=== PATIENT | male | born 1955 | race Caucasian/White ===

== ENCOUNTER 2020-10-24 09:49 | Outpatient (CLI) | payer MEDICARE ==
--- NOTE | 2020-10-24 10:28 | ULT ---
US Hepatic Doppler History: Hepatitis C Comparison: None. Findings: Real-time grayscale, color and spectral analysis of the liver was performed. Mildly increased hepatic echotexture without mass. No intrahepatic or extrahepatic biliary dilatation . Normal directional flow of the portal and hepatic veins. Liver measures 16.7 cm in length. Common bile duct measures 4 mm, normal. Normal waveforms of the hepatic artery. Gallbladder is normal. No pericholecystic inflammation. No cholelithiasis. Spleen is enlarged measuring 12.7 cm in length. Splenic artery and vein are patent. Impression: 1. Mild splenomegaly. 2. Mild coarsened hepatic echotexture suggesting hepatitis without mass. 3. Normal directional vascular flow.
== END 2020-10-24 09:50 | disposition home or self-care (01) ==
LOC: BICULT 09:49
PROVIDERS: ATTEND Internal Medicine Gastroenterology
DX: B18.2 Chronic viral hepatitis C (principal); K51.90 Ulcerative colitis, unspecified, without complications; R16.1 Splenomegaly, not elsewhere classified
CPT/HCPCS: 76705

== ENCOUNTER 2020-11-28 08:49 | Outpatient (CLI) | payer MEDICARE ==
--- NOTE | 2020-11-28 09:29 | RAD ---
LUMBAR SPINE SERIES 4 VIEWS: HISTORY: Low back pain with neurogenic claudication. FINDINGS: Vertebral bodies are normal in height. There is mild scoliotic change convex to the right. Pedicles are intact. There are degenerative facet changes without a significant degree of disk narrowing. F lexion and extension views do not show abnormal motion. IMPRESSION: Mild arthritic changes of the spine. POS: SYDNIE
== END 2020-11-28 08:50 | disposition home or self-care (01) ==
LOC: BICRAD 08:49
PROVIDERS: ATTEND Anesthesiology Pain Medicine
DX: S32.009K Unspecified fracture of unspecified lumbar vertebra, subsequent encounter for fracture with nonunion (principal); M48.062 Spinal stenosis, lumbar region with neurogenic claudication; M46.96 Unspecified inflammatory spondylopathy, lumbar region
CPT/HCPCS: 72110

== ENCOUNTER 2021-11-06 17:00 | Outpatient (CLI) | payer MEDICARE | END 2021-11-06 17:01 | disposition home or self-care (01) | LOC: SLEEPLAB 17:00 | PROVIDERS: ATTEND Registered Nurse | DX: G47.33 Obstructive sleep apnea (adult) (pediatric) (principal); G47.10 Hypersomnia, unspecified; R53.83 Other fatigue | CPT/HCPCS: 95806 ==

== ENCOUNTER 2021-12-03 19:30 | Outpatient (CLI) | payer MEDICARE | END 2021-12-03 19:31 | disposition home or self-care (01) | LOC: SLEEPLAB 19:30 | PROVIDERS: ATTEND Registered Nurse | DX: G47.33 Obstructive sleep apnea (adult) (pediatric) (principal); G47.10 Hypersomnia, unspecified; R53.83 Other fatigue | CPT/HCPCS: 95811 ==

== ENCOUNTER 2021-12-20 11:52 | Outpatient (CLI) | payer MEDICARE | END 2021-12-20 11:53 | disposition home or self-care (01) | LOC: MRI 11:52 | PROVIDERS: ATTEND Anesthesiology Pain Medicine | DX: M47.26 Other spondylosis with radiculopathy, lumbar region (principal); M16.11 Unilateral primary osteoarthritis, right hip; S73.101A Unspecified sprain of right hip, initial encounter; M43.16 Spondylolisthesis, lumbar region; M48.061 Spinal stenosis, lumbar region without neurogenic claudication; M24.151 Other articular cartilage disorders, right hip | CPT/HCPCS: 72148 ==

== ENCOUNTER 2023-10-06 09:20 | Outpatient (CLI) | payer MEDICARE | END 2023-10-06 09:21 | disposition home or self-care (01) | LOC: BICMRI 09:20 | PROVIDERS: ATTEND Anesthesiology Pain Medicine | DX: M47.22 Other spondylosis with radiculopathy, cervical region (principal); M47.813 Spondylosis without myelopathy or radiculopathy, cervicothoracic region; Z98.890 Other specified postprocedural states | CPT/HCPCS: 72052; 72141 ==